=== PATIENT | female | born 1965 | race Caucasian/White ===

== ENCOUNTER 2023-01-30 06:11 | Emergency (ER) | payer OTHER, SELFPAY ==
[2023-01-30] VITALS (9 sets, daily range): BP systolic 99–138; BP diastolic 61–94; PULSE 64–96; RESP 14–21; TEMP 36.6; O2SAT 97–100
--- NOTE | ~2023-01-30 | XR_ITS ---
EXAMINATION: XR chest 2V 01/30/2023 08:21 INDICATION: Syncope PROCEDURE: 2 view chest COMPARISON: No prior studies for comparison. FINDINGS: The lungs are clear. The cardiomediastinal silhouette is within normal limits. There are no pleural effusions. There is no pneumothorax suspected. IMPRESSION: 1: NO ACUTE CARDIOPULMONARY DISEASE. Reviewed, dictated and finalized at location B. 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
--- NOTE | 2023-01-30 06:20 | ECG_ITS ---
Measurements Intervals [place] Rate: 67 P: 58 DE: 162 QRS: -19 QRSD: 81 T: 150 QT: 454 QTc: 482 Interpretive Statements SINUS RHYTHM VOLTAGE CRITERIA FOR LVH T WAVE ABNORMALITY IN ANTEROLATERAL LEADS- CONSIDER ISCHEMIA ABNORMAL ECG NO PREVIOUS ECG AVAILABLE FOR COMPARISON Electronically Signed On 01-30-2023 6:25:09 [employer] by Ishan Song D.O.
[2023-01-30 06:33] LABS: Basophils Percent Auto 0.4 % (0.2-1.2); Eosinophils Absolute Auto 0.3 K/mm3 (0-0.3); Eosinophils Percent Auto 4.3 % (0-4.4); Hematocrit 40.3 % (37.0-47.0); Hemoglobin 12.6 g/dL (12.0-15.0); Immature Granulocyte Absolute 0.02 K/mm3 (0.00-0.031); Immature Granulocyte Percent A 0.3 % (0-0.5); Lymphocytes Percent Auto 15.7 % (18.3-44.2); Mean Corpuscular HGB Conc 31.3 g/dl (32-36); Mean Corpuscular Volume 92.6 fl (80-100); Mean Platelet Volume 9.8 fl (7.4-10.4); Monocytes Absolute Auto 0.5 K/mm3 (0.1-0.6); Monocytes Percent Auto 6.2 % (2.6-8.5); Neutrophils Absolute Auto 5.6 K/mm3 (1.3-6.7); Neutrophils Percent Auto 73.1 % (45.5-73.1); Platelet Count Result 176 k/mm3 (150-375); Red Blood Count 4.35 M/mm3 (4.2-5.4); Red Cell Distribution Width 13.1 % (11.5-14.5); White Blood Count 7.6 K/mm3 (4.5-10.0)
[2023-01-30 06:51] LABS: Alanine Aminotransferase 18 U/L (6-35); Alkaline Phosphatase 74 U/L (38-126); Anion Gap 9 mmol/L (8-16); Aspartate Amino Transferase 26 U/L (14-36); Bilirubin,Total 0.6 mg/dL (0.2-1.3); Blood Urea Nitrogen 20 mg/dL (7-17); Calcium 8.9 mg/dL (8.4-10.2); Carbon Dioxide 27 mmol/L (22-30); Chloride 105 mmol/L (98-107); Estimated CRCL calculation 72 ml/min; Estimated Glomerular Filt Rate > 60; Glucose 116 mg/dL (65-110); Potassium 3.9 mmol/L (3.4-5.0); Sodium 141 mmol/L (137-145)
[2023-01-30] MEDS: SODIUM CHLORIDE 0.9% IV 1,000 ML 999 ML IV CONT ×2 (07:38→08:53)
--- NOTE | 2023-01-30 07:39 | ED.SYNCOPE ---
HPI - Syncope General Chief Complaint: Syncope Stated Complaint: syncopal Time Seen by Provider: 01/30/23 07:02 History of Present Illness HPI narrative: Patient is a 57-year-old female who presents to the ER after having a syncopal event. She went from lying to standing when she got lightheaded and passed out. Her mother witnessed the event and caught her and helped ease her to the ground. Patient reports normal oral intake but has very dry lips mouth at this time. She has no chest pain or chest pressure. No shortness of breath. She denies any abdominal discomfort with nausea or vomiting. She has no urinary symptoms. Related Data Allergies Allergy/AdvReac Type Severity Reaction Status Date / Time No Known Allergies Allergy Verified 01/30/23 06:23 Review of Systems Review of Systems: All systems reviewed & are unremarkable except as noted in HPI and below Constitutional: Constitutional: Reports no additional constitutional complaints ENT: Reports system reviewed and no additional complaints, except as documented Cardiovascular: Cardiovascular: Reports no additional cardiovascular complaints Respiratory: Respiratory: Reports no additional respiratory complaints Gastrointestinal: Gastrointestinal: Reports no additional gastrointestinal complaints Genitourinary: Genitourinary: Reports no additional female genitourinary complaints Neurologic: Reports syncope, Denies headache(s), Denies focal weakness and Denies numbness PMFSH Past Medical History Medical History (Updated 01/30/23 @ 08:51 by Haja Neff MD) Depression Hypertension Surgical History Surgical History (Updated 01/30/23 @ 07:42 by Haja Neff MD) No history of previous surgery Exam Narrative: GENERAL: Well-appearing, well-nourished, and in no acute distress. HEAD: Normocephalic, atraumatic. ENT: Dry mucous membranes CHEST: Clear to auscultation. No respiratory distress. HEART: Regular rate and rhythm. Normal peripheral pulses. ABDOMEN: Soft, nontender, nondistended. EXTREMITIES: Normal range of motion. No edema. SKIN: Warm, dry, scabs to face in arms and legs from picking. NEURO: Alert and oriented x3. PSYCH: Normal mood and affect. Course Course Emergency Course: Patient resting comfortably. Informed of results. EKG abnormal in no comparisons. Patient without chest pain or exertional dyspnea/chest discomfort. Will give a 2 L of fluid and discharged home with oral antibiotics. Recommend follow-up with PCP. Vital Signs Vital signs: Vital Signs Temperature 97.8 F 01/30/23 06:12 Pulse Rate 70 01/30/23 06:12 Respiratory Rate 14 01/30/23 06:12 Blood Pressure 104/70 01/30/23 06:12 Pulse Oximetry 99 01/30/23 06:12 Oxygen Delivery Room Air 01/30/23 06:12 Temperature 97.8 F 01/30/23 06:12 Pulse Rate 96 01/30/23 08:48 Respiratory Rate 20 01/30/23 08:48 Blood Pressure 121/85 01/30/23 08:48 Pulse Oximetry 99 01/30/23 08:48 Oxygen Delivery Room Air 01/30/23 06:12 MDM - Syncope Lab Data 01/30/23 06:28 01/30/23 06:28 Labs: Lab Results 01/30/23 01/30/23 Range/Units 06:28 08:21 WBC 7.6 (4.5-10.0) K/mm3 RBC 4.35 (4.2-5.4) M/mm3 Hgb 12.6 (12.0-15.0) g/dL Hct 40.3 (37.0-47.0) % MCV 92.6 (80-100) fl MCH 29.0 (26-34) pg MCHC 31.3 L (32-36) g/dl RDW 13.1 (11.5-14.5) % Plt Count 176 (150-375) k/mm3 MPV 9.8 (7.4-10.4) fl Immature Gran % (Auto) 0.3 (0-0.5) % Neut % (Auto) 73.1 (45.5-73.1) % Lymph % (Auto) 15.7 L (18.3-44.2) % [place] % (Auto) 6.2 (2.6-8.5) % Eos % (Auto) 4.3 (0-4.4) % Baso % (Auto) 0.4 (0.2-1.2) % Lymph # (Auto) 1.20 (0.9-3.2) K/mm3 [place] # (Auto) 0.5 (0.1-0.6) K/mm3 Eos # (Auto) 0.3 (0-0.3) K/mm3 Baso # (Auto) 0.0 (0.0-0.1) K/mm3 Abs Immat Gran (auto) 0.02 (0.00-0.031) K/mm3 Absolute Neuts (auto) 5.6 (1.3-6.7) K/mm3 Absolute Nucleat
--- NOTE | 2023-01-30 08:07 | PC.NURSE ---
Pt to XRAY via stretcher at this time.
[2023-01-30 08:33] LABS: Appearance Urine Clear (Clear); Bacteria Urine None Seen /hpf; Bilirubin Urine Negative (Negative); Blood Urine Negative (Negative); Color Urine Yellow (Yellow); Glucose Urine UA Negative (Negative); Ketones Urine Trace mg/dL (Negative); Leukocyte Esterase Ur Trace LEU/UL (Negative); Nitrate Urine Negative (Negative); Non Pathogenic Casts 0-2; Protein Urine Trace mg/dL (Negative); RBC Urine 0-2 /hpf (0-2); Specific Grav Ur 1.025 (1.001-1.035); Squamous Epithelial Cell Urine Occasional /hpf (Few); pH Urine 7.5 (5.0-9.0)
[2023-01-30 08:41] LABS: Add Urine Microscopic? YES
== END 2023-01-30 09:32 | disposition home or self-care (01) ==
PROVIDERS: Emergency Medicine; Emergency Provider Emergency Medicine
DX: R55 Syncope and collapse (principal); N39.0 Urinary tract infection, site not specified; R94.31 Abnormal electrocardiogram [ECG] [EKG]; F32.A Depression, unspecified
CPT/HCPCS: 36415; 71046; 80053; 81001; 85025; 87086; 93005; 96360; 96361; 99284; J7030